=== PATIENT | male | born 1990 | race Caucasian/White ===

== ENCOUNTER → 2017-08-09 09:16 | Outpatient (CLI) | payer BC, SELFPAY ==
--- NOTE | 2017-08-09 10:29 | NEURO_ITS ---
NCS and/or EMG Patient Report Ordering Doctor: Georges Mayfield DATE OF SERVICE: 08/09/17 This is a right upper extremity EMG test only performed on this 27-year-old male who has a traumatic injury to his left upper extremity. In his right upper extremity he has experienced what he describes as random intermittent numbness of his entire hand and arm on the right side. Symptoms can last from 30 seconds to 5 minutes and can occur without trigger regardless of position, time of day or night. This sensations have awakened him from sleep. He denies pain. Healthy otherwise. Right upper extremity EMG was performed. The right abductor pollicis brevis was attempted to be evaluated however the patient experienced excessive pain and deferred further testing of the hand. He did tolerate more proximal testing , other muscles evaluated included the extensor indices proprius, abductor pollicis longus, brachioradialis, biceps, triceps and deltoid muscles. All muscles demonstrated normal insertional activity with absence of pathologic spontaneous activity. Motor unit potential recruitment pattern and amplitude was normal in all muscles tested. Impression: This is a normal EMG only of the right upper extremity. Nerve conduction study of the right upper extremity is recommended to evaluate for neuropathy. If clinically indicated, vascular studies of the right upper extremity could be considered.
== END ==
PROVIDERS: Family Provider Family Medicine; PCP Family Medicine; Visit Provider Family Medicine
DX: R20.2 Paresthesia of skin (principal)
CPT/HCPCS: 95860